=== PATIENT | male | born 1985 | race Caucasian/White ===

== ENCOUNTER 2023-06-22 12:59 | Emergency (ER) | payer MEDICAID ==
[~2023-06-22] VITALS: Ht 182.9 cm; Wt 81.6 kg
[2023-06-22] MEDS ORDERED: AMOX-430 PO (13:18)
[2023-06-22] MEDS ORDERED: TDAP DIPH,PERTUSS,TET VAC/PF 0.5 ML DISP.SYRIN IM ONE (13:20)
[2023-06-22] MEDS: TDAP DIPH,PERTUSS,TET VAC/PF 0.5 ML DISP.SYRIN IM ONE (13:22)
[2023-06-22 13:35] VITALS: BP 132/71; TEMP 98.2; O2SAT 76
== END 2023-06-22 13:36 | disposition home or self-care (01) ==
LOC: ER 13:04
DX: S61.230A Puncture wound without foreign body of right index finger without damage to nail, initial encounter (principal); Z79.899 Other long term (current) drug therapy; W53.21XA Bitten by squirrel, initial encounter; Y93.89 Activity, other specified; Y92.89 Other specified places as the place of occurrence of the external cause; Y99.8 Other external cause status
CPT/HCPCS: 90715; A4606; A4663